=== PATIENT | male | born 1995 | race Caucasian/White ===

== ENCOUNTER → 2020-07-07 | Outpatient (REF) | payer OTHER ==
[2020-07-08 11:58] LABS: CHLAMYDIA DNA AMPLIFICATION POSITIVE (NEGATIVE); GC DNA AMPLIFICATION NEGATIVE (NEGATIVE)
== END ==
LOC: M WUC 09:23
PROVIDERS: ATTEND Physician Assistant
DX: R36.9 Urethral discharge, unspecified (principal)

== ENCOUNTER → 2023-09-05 | Outpatient (CLI) | payer OTHER ==
[~2023-09-05] MED LIST: ISOVUE-300 61% 100ML VIAL As Ordered ONE; LIDOCAINE 1% MDV 20ML VIAL As Ordered ONE; TRIAMCINOLONE ACETONIDE SUSP 40MG/ML 1ML VIAL As Ordered ONE
== END ==
LOC: M RAD 13:55
PROVIDERS: ATTEND Physician Assistant Surgical
DX: S73.121A Ischiocapsular ligament sprain of right hip, initial encounter (principal); X58.XXXA Exposure to other specified factors, initial encounter; Y92.9 Unspecified place or not applicable
CPT/HCPCS: 20610; 77002; J3301; Q9967